=== PATIENT | female | born 1995 | race African-American/Black ===

== ENCOUNTER 2022-09-20 09:15 | Emergency (ER) | payer OTHER ==
[2022-09-20 09:27] VITALS: BP 108/70; PULSE 85; RESP 16; TEMP 98.8; BMI 32.5
[2022-09-20] MEDS ORDERED: IBUPROFEN 400 MG TABLET (FP) PO ONE ×2 (10:04→10:09)
== END 2022-09-20 10:28 | disposition home or self-care (01) ==
LOC: FER 09:15
DX: S16.1XXA Strain of muscle, fascia and tendon at neck level, initial encounter (principal); Y99.9 Unspecified external cause status
CPT/HCPCS: 99283-25